=== PATIENT | female | born 1990 | race Caucasian/White ===

== ENCOUNTER 2017-03-27 16:56 | Emergency (ER) | payer OTHER, MEDICAID ==
[~2017-03-27] VITALS: Ht 175.3 cm; Wt 120.0 kg
[~2017-03-27 16:56] MED LIST: ADDE20 PO; BLOOD GLUCOSE M1 KIT; BLOOD GLUCOSE T1 TES; METF500T PO; VIST50CA PO
[2017-03-27 17:07] VITALS: BP 173/77; PULSE 102; RESP 19; TEMP 98.6; O2SAT 98
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
[2017-03-27 18:14] VITALS: BP 164/89
[2017-05-15] MEDS ORDERED: METF500T PO (08:39)
== END 2017-03-27 18:16 | disposition home or self-care (01) ==
LOC: NEPD 16:56
DX: M79.661 Pain in right lower leg (principal); M62.81 Muscle weakness (generalized); V43.52XA Car driver injured in collision with other type car in traffic accident, initial encounter; Y92.414 Local residential or business street as the place of occurrence of the external cause; E11.9 Type 2 diabetes mellitus without complications; Z79.84 Long term (current) use of oral hypoglycemic drugs
CPT/HCPCS: 99283